=== PATIENT | male | born 1990 | race American Indian/Alaskan Native ===

== ENCOUNTER 2018-06-15 08:22 | Emergency (ER) | payer MEDICAID ==
[2018-06-15] MEDS ORDERED: Alum-Mag Hydrox-Simethicone Susp (30 mL) PO STA (08:45)
--- NOTE | 2018-06-15 08:48 | ED PDOC ---
Arrival/HPI - General Chief Complaint: Flu-like Symptoms Time Seen by Provider: 06/15/18 08:31 Historian: Patient, Spouse - History of Present Illness Narrative History of Present Illness (Text): 06/15/18 08:44 A 28 year old male with no significant past medical history presents to the emergency department, accompanied by family, complaining of flu like symptoms for the past 2 days. Patient reports experiencing tactile fever, sore throat, sinus congestions, cough, chest pain upon coughing, nausea, vomiting, and diaphoresis. Patient states he primarily vomits after significant coughing and nausea. Patient reports taking motrin for symptoms to some relief and denies any sick contacts. Patient denies any shortness of breath, abdominal pain, appetite changes, or any other complaints. No PMD Time/Duration: < week (2 days) Symptom Onset: Gradual Symptom Course: Unchanged Quality: Aching Activities at Onset: Light Context: Home Past Medical History - Provider Review Nursing Documentation Reviewed: Yes - Psychiatric Hx Substance Use: Yes (daily) - Surgical History Other/Comment: R leg screws - Anesthesia Hx Anesthesia: Yes Hx Anesthesia Reactions: No Hx Malignant Hyperthermia: No Family/Social History - Physician Review Nursing Documentation Reviewed: Yes Family/Social History: No Known Family HX Smoking Status: Never Smoked Hx Alcohol Use: Yes Frequency of alcohol use: Socially Hx Substance Use: Yes (daily) Substance used: marijuana Allergies/Home Meds Allergies/Adverse Reactions: Allergies No Known Allergies Allergy (Verified 06/15/18 08:34) Review of Systems - Physician Review All systems were reviewed & negative as marked: Yes - Review of Systems Constitutional: Fevers (tactile fever) ENT: Sore Throat, Sinus Congestion Respiratory: Cough. absent: SOB Cardiovascular: Chest Pain Gastrointestinal: Nausea, Vomiting. absent: Abdominal Pain, Appetite Changes Endocrine: Diaphoresis Physical Exam Vital Signs Reviewed: Yes Vital Signs Temp Pulse Resp BP Pulse Ox 06/15/18 08:37 98.7 F 77 18 103/55 L 99 Temperature: Afebrile Blood Pressure: Hypotensive Pulse: Regular Respiratory Rate: Normal Appearance: Positive for: Well-Appearing, Non-Toxic Pain Distress: None Mental Status: Positive for: Alert and Oriented X 3 - Systems Exam Head: Present: Atraumatic, Normocephalic Pupils: Present: PERRL Extroacular Muscles: Present: EOMI Conjunctiva: Present: Normal Mouth: Present: Moist Mucous Membranes Neck: Present: Normal Range of Motion Respiratory/Chest: Present: Clear to Auscultation, Good Air Exchange. No: Respiratory Distress, Accessory Muscle Use Cardiovascular: Present: Regular Rate and Rhythm, Normal S1, S2. No: Murmurs Abdomen: No: Tenderness, Distention, Peritoneal Signs Back: Present: Normal Inspection Upper Extremity: Present: Normal Inspection. No: Cyanosis, Edema Lower Extremity: Present: Normal Inspection. No: Edema Neurological: Present: GCS=15, CN II-XII Intact, Speech Normal Skin: Present: Warm, Dry, Normal Color. No: Rashes Psychiatric: Present: Alert, Oriented x 3, Normal Insight, Normal Concentration Medical Decision Making ED Course and Treatment: 06/15/18 08:46 Impression: 28 year old male presenting to the emergency room complaining of flu-like symptoms. Differential Diagnosis included but are not limited to: rule out pneumonia vs flu vs other viral syndrome Plan: -- Chest X-ray -- Maalox -- Motrin -- Reassess and disposition Progress Notes: CXR negative. No signs of pneumonia. Patient has normal vital signs. He has no respiratory distress and is tolerating PO fluids well. He was good family support. He will be discharged with close PMD f/u. He was advised tor return to the ED if symptoms worsen, unable to drink fluids or any other concern. - Scribe Statement The provider has reviewed the documentation as recorded by the Scribrosendo Rodriguez All medical record entries made by the Scribe were at my direction and personally dictated by me. I have reviewed the chart and agree that the record accurately reflects my personal performance of the history, physical exam, medical decision making, and the department course for this patient. I have also personally directed, reviewed, and agree with the discharge instructions and disposition. Disposition/Present on Arrival - Present on Arrival Any Indicators Present on Arrival: No History of DVT/PE: No History of Uncontrolled Diabetes: No Urinary Catheter: No History of Decub. Ulcer: No History Surgical Site Infection Following: None - Disposition Have Diagnosis and Disposition been Completed?: Yes Diagnosis: Viral syndrome Disposition: HOME/ ROUTINE Disposition Time: 09:34 Patient Plan: Discharge Condition: IMPROVED Additional Instructions: LUIS MANUEL CARVAJAL, thank you for letting us take care of you today. Your provider was Kel L Rabines DO and you were treated for Viral Syndrome. The emergency medical care you received today was directed at your acute symptoms. If you were prescribed any medication, please fill it and take as directed. It may take several days for your symptoms to resolve. Return to the Emergency Department if your symptoms worsen, do not improve, or if you have any other problems. Please contact your doctor or call one of the physicians/clinics you have been referred to that are listed on the Patient Visit Information form that is included in your discharge packet. Bring any paperwork you were given at discharge with you along with any medications you are taking to your follow up visit. Our treatment cannot replace ongoing medical care by a primary care provider outside of the emergency department. Thank you for allowing the [facility] team to be part of your care today. If you had an X-Ray or CT scan: A Radiologist will review the ED reading if any change in treatment is needed we will contact you. If you had a blood, urine, or wound culture: It will take several days for the results, if any change in treatment is needed we will contact you. If you had an STI test: It will take 48 hours for the results. Please call after 1 week if you have not heard back. Prescriptions: Ibuprofen [Motrin] 600 mg PO Q6 PRN #30 tab PRN Reason: Pain, Moderate (4-7) Referrals: [facility] [Outside] - Follow up with primary Vesna Almeida MD [Medical Doctor] - Follow up with primary Forms: [employer] (Turkmen), WORK NOTE
[2018-06-15 08:59] VITALS: RESP 18; BMI 27.7
--- NOTE | 2018-06-15 09:25 | RAD ---
Date of service: 06/15/2018 HISTORY: Rule out pneumonia COMPARISON: No prior. TECHNIQUE: Chest PA and lateral FINDINGS: LUNGS: Suspect minimal atelectasis right lung base PLEURA: No significant pleural effusion identified. No pneumothorax apparent. CARDIOVASCULAR: No aortic atherosclerotic calcification present. Normal cardiac size. No pulmonary vascular congestion. OSSEOUS STRUCTURES: No significant abnormalities. VISUALIZED UPPER ABDOMEN: Normal. OTHER FINDINGS: None. IMPRESSION: Suspect minimal atelectasis right lung base
[2018-06-15 09:27] VITALS: BP 126/67; PULSE 74; TEMP 97.8; O2SAT 97
== END 2018-06-15 09:33 | disposition home or self-care (01) ==
LOC: ED 08:22
DX: B34.9 Viral infection, unspecified (principal)